=== PATIENT | female | born 2000 | race Caucasian/White ===

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

== ENCOUNTER 2021-08-20 09:55 | Emergency (ER) | payer BC ==
[~2021-08-20] VITALS: Ht 165.1 cm; Wt 83.9 kg
[2021-08-20 09:56] VITALS: BP 134/94
[2021-08-20 10:49] LABS: Urine Bacteria MOD /hpf (None Seen); Urine Blood Negative /uL (Negative); Urine Specific Gravity 1.003 (1.001-1.035); Urine WBC 17 /hpf (0 - 5)
[2021-08-20] MEDS ORDERED: IBUP600T27 PO (13:49)
[2021-08-20] MEDS ORDERED: NITR-87 PO (13:49)
== END 2021-08-20 13:53 | disposition home or self-care (01) ==
LOC: ER 09:55
DX: N39.0 Urinary tract infection, site not specified (principal); N83.291 Other ovarian cyst, right side; F17.210 Nicotine dependence, cigarettes, uncomplicated
CPT/HCPCS: 76856; 81001; 81025